=== PATIENT | male | born 1985 | race Caucasian/White ===

== ENCOUNTER 2018-03-02 10:16 | Emergency (ER) | payer OTHER, SELFPAY ==
[2018-03-02 10:18] VITALS: BP 159/112; PULSE 112; RESP 17; TEMP 36.4; O2SAT 98; BMI 30.1
--- NOTE | 2018-03-02 10:49 | EKG12_ITS ---
Test Reason : CP Blood Pressure : / mmHG Vent. Rate : 108 BPM Atrial Rate : 108 BPM P-R Int : 168 ms QRS Dur : 108 ms QT Int : 356 ms P-R-T Axes : 065 026 043 degrees QTc Int : 477 ms Sinus tachycardia Otherwise normal ECG Confirmed by HARISH ANGELO, GINGER ([id number]), editor map TRIPP MORALES ([id number]) on 03/06/2018 2:24:29 PM Referred By: AIDEE/KYLAH Confirmed By:GINGER MOREIRA MD
[2018-03-02 10:56] LABS: Absolute Lymphocyte Count 2.05 X10^3/ul (0.83-4.51); Absolute Neutrophil Count 5.7 X10^3/uL (2.0-7.7); Basophil# 0.04 X10^3/uL; Basophil% 0.5 % (0-1); Eosinophil# 0.25 X10^3/uL; Eosinophils% 2.9 % (0-5); Hematocrit 49.4 % (40-54); Hemoglobin 16.5 g/dl (13.0-16.5); Lymphocyte # 2.05 X10^3/ul (4.0); Lymphocyte % 23.6 % (19-41); Mean Corp Hgb Conc 33.4 g/gl (32-36); Mean Corpuscular Volume 80.7 fL (80-94); Mean Platelet Vol. 9.6 fl (6.2-12.0); Monocyte# 0.59 X10^3/uL; Monocyte% 6.8 % (0-10); Neutrophil # 5.73 X10^3/uL (2.7-7.7); Platelet Count 255 K/mm3 (150-450); RBC Distribution Width CV 13.3 % (11.6-14.6); RBC Distribution Width SD 39.2 fl (35.1-43.9); Red Blood Count 6.12 M/mm3 (4.6-6.2); White Blood Count 8.7 K/mm3 (4.4-11.0)
[2018-03-02 11:02] LABS: POSITIVE COUNT NO; POSITIVE DIFFERENTIAL NO; POSITIVE MORPHOLOGY NO
[2018-03-02 11:04] LABS: Anion Gap 7 (5-15); BUN 16 mg/dL (7-18); BUN/Creat Ratio 13.1 RATIO (10-20); Calcium,Total 8.9 mg/dL (8.5-10.1); Chloride 104 mmol/L (98-107); Creatinine, Serum 1.22 mg/dL (0.70-1.30); EST Glomerular Filtration Rate 72 mL/min (>60); Est Glom Filt Rate - Afr Amer 87 mL/min (>60); Estimated Creatinine Clearance 93.64 ml/min; Glucose 108 mg/dL (74-106); Potassium 3.6 mmol/L (3.5-5.1); Sodium Level 139 mmol/L (136-145)
[2018-03-02 11:10] LABS: Bedside Glucose 103 mg/dL (70-110)
[2018-03-02 12:34] VITALS: BP 144/95; PULSE 84; RESP 18; O2SAT 99
[2018-03-02 13:21] VITALS: BP 141/86; PULSE 85; RESP 17; O2SAT 98
--- NOTE | 2018-03-02 17:24 | ED.DCSUM_ITS ---
History of Present Illness Chief Complaint: Anxiety Informant: Patient Onset: Today, Hours - 3 Context: Sudden Onset - While walking Timing: Continuous Quality: Feeling shaky, chest heaviness, felt like heart rate was up but not necessa Location: Chest without radiation Current Severity: Moderate Maximum Severity: Moderate Worsened by: nothing Relieved by: nothing Narrative: Patient took 1 of his alprazolam but half of a tablet this morning before symptoms started. He states he does this typically. He also uses Claritin-D, and has used that regularly for the spring and summer, so that is unlikely the cause of his symptoms. No cocaine or other illicit substances. No significant caffeine use. Does not feel suicidal. States he has a history of panic attacks and they often feel like this except for the shakiness which he has not had before. The symptoms came out of nowhere, which is common with his panic attacks. No history of heart problems. Past Medical History - Allergies and Home Meds Allergies/Adverse Reactions: Allergies erythromycin base [Erythromycin Base] Allergy (Verified 04/17/14 09:58) Unknown simvastatin Allergy (Verified 04/17/14 09:58) Unknown Primary Care Physician: Arvin Khalil NP-C [Primary Care Provider] - Smoking Status: Never smoker Review of Systems All systems negative except as indicated Cardiovascular: Reports: Chest pain. Denies: Palpitations Respiratory: Denies: Dyspnea Neurological: Reports: - - shaky Psych: Reports: Anxiety Physical Exam Vital Signs/Narrative: Vital Signs Temp Pulse Resp BP Pulse Ox 03/02/18 12:34 84 18 144/95 H 99 03/02/18 10:18 97.5 F L 112 H 17 159/112 H 98 Inital Vital Signs reviewed: Yes General: Well nourished, Well developed Head: Normocephalic, Atraumatic Eyes: Perrl, EOMI ENT: Moist mucous membranes, No rhinorrhea Neck: Supple, Nontender Cardiovascular: Regular rate, Regular rhythm, No murmurs Respiratory: No distress, CTA bilaterally, Chest nontender Abdomen: Soft, Nontender, Nondistended, Normal bowel sounds Back: Nontender, Normal Inspection Extremities: Nontender, No edema Skin: Normal color, No rash Neurological: Alert, Oriented x3, Cranial nerves II-XII grossly intact, Normal Strength, Normal Sensation Psychological: Normal affect - mildly anxious and tremulous Diagnostic/Tx/Re-eval Laboratory Results 03/02/18 03/02/18 03/02/18 Range/Units 10:25 10:25 11:06 WBC 8.7 (4.4-11.0) K/mm3 RBC 6.12 (4.6-6.2) M/mm3 Hgb 16.5 (13.0-16.5) g/dl Hct 49.4 (40-54) % MCV 80.7 (80-94) fL MCH 27.0 (27.0-32.0) pg MCHC 33.4 (32-36) g/gl RDW 13.3 (11.6-14.6) % RDW Differential 39.2 (35.1-43.9) fl Plt Count 255 (150-450) K/mm3 MPV 9.6 (6.2-12.0) fl Immature Gran % (Auto) 0.200 (0.0-0.9) % Neut % (Auto) 66.0 (47-70) % Lymph % (Auto) 23.6 (19-41) % Miner % (Auto) 6.8 (0-10) % Eos % (Auto) 2.9 (0-5) % Baso % (Auto) 0.5 (0-1) % Absolute Neuts (auto) 5.7 (2.0-7.7) X10^3/uL Absolute Lymphs (auto) 2.05 (0.83-4.51) X10^3/ul Total Counted Not Reportable Sodium 139 (136-145) mmol/L Potassium 3.6 (3.5-5.1) mmol/L Chloride 104 (98-107) mmol/L Carbon Dioxide 28.0 (21.0-32.0) mmol/L Anion Gap 7 (5-15) BUN 16 (7-18) mg/dL Creatinine 1.22 (0.70-1.30) mg/dL Estim Creat Clear Calc 93.64 ml/min Est GFR (MDRD) Af Amer 87 (>60) mL/min Est GFR (MDRD) Non-Af 72 (>60) mL/min BUN/Creatinine Ratio 13.1 (10-20) RATIO Glucose 108 H (74-106) mg/dL Calcium 8.9 (8.5-10.1) mg/dL POC Glucose 103 (70-110) mg/dL - Rhythm Strip Rhythm Strip: Sinus Tach Rate: 105 Ectopy: None - EKG 1 Interpretation: No Acute Injury Pattern, Sinus Tachycardia - 108, - - Normal intervals - Medical Decision Making Patient took his own alprazolam, I offered to give him 1 of those here or an Ativan, but he declined and insisted on taking his own. He felt much better on reevaluation and almost testing is normal. He is not shaky anymore. I reassure him, I think is safe for discharge home. He will follow-up. ED Disposition - Plan for ED Patient: Disposition: Home or Assisted Living Chief Complaint: Anxiety Diagnosis: Anxiety attack, Chest pain, unspecified Instructions: ED Panic Attack Referrals: Arvin Khalil NP-C [Primary Care Provider] - 3-5 Days if not improving
== END 2018-03-02 13:27 | disposition home or self-care (01) ==
PROVIDERS: Emergency Provider Emergency Medicine; Family Provider Nurse Practitioner Family; PCP Nurse Practitioner Family
DX: F41.0 Panic disorder [episodic paroxysmal anxiety] (principal); R07.9 Chest pain, unspecified
CPT/HCPCS: 80048; 82962; 85025; 93005; 99283; A4216

== ENCOUNTER → 2021-04-18 | Outpatient (CLI) | payer OTHER, SELFPAY | END | disposition home or self-care (01) | LOC: LABSPEC 05-07 13:42 | PROVIDERS: PCP Nurse Practitioner Family; Visit Provider Nurse Practitioner Family | DX: Z20.822 Contact with and (suspected) exposure to COVID-19 (principal) | CPT/HCPCS: 87635; U0005; U0003 ==

== ENCOUNTER → 2023-09-21 | Outpatient (CLI) | payer OTHER, SELFPAY ==
--- OUTSIDE RECORDS SUMMARY | 2023-09-21 20:02 | XMS RPT_ITS | CCD ---
Author Name Unknown Address [address] [place] [address] Organization [facility] Care Team Providers Care [employer] Name Role Phone JACOB GOMEZ APRN, CNP Primary Care Phys ician JACOB GOMEZ APRN, CNP Attending U JACOB Villegas APRN, CNP Primary Care U isabel Allergies Allergy Classification Reported Allergen(s) Allergy Type Date of Onset Reaction(s) Facility (1 source) Cefaclor; Translations: [cefaclor] Drug Allergy Weal (disorder) [facility] [place] (1 source) Erythromycin; Translations: [erythromycin] Drug Allergy Vomiting (disorder), Nausea (finding) [facility] (1 source) Simvastatin; Translations: [simvastatin] Drug Allergy Muscle pain (finding) [facility] Medications Current Medications Medication Drug Class(es) Dates Sig (Normalized) Sig (Original) ALPRAZolam 0.5 mg oral tablet (1 source) Benzodiazepine Start: 06-17-2023 End: 09-15-2023 ALPRAZolam 0.5 mg oral tablet Dose : 0.5 mg = 1 tab(s), Oral, BID, Fill Date: 06/17/2023, # 60 tab(s), 2 Refill(s), Pharmacy: [id number], JOHN (generalized anxiety disorder) Medication management contract signed, 08/2021, 186, cm, 06/17/23 14:59:00 EDT, Height, 97.8, kg, 06/17/23 14:59:00 EDT, Dosing Weight Start Date: 06/17/23 Stop Date: 09/15/23 Status: Ordered EPINEPHrine (1 source) alpha-Adrenergic Agonist, beta-Adrenergic Agonist, Catecholamine Start: 12-24-2022 EPINEPHrine 0.3 mg injectable kit Dose : 0.3 mg = 1 EA, Intramuscular, AsDirected, PRN Allergic reaction, # 1 kit(s), 2 Refill(s), Pharmacy: [id number], Allergic reaction to bee sting, 186, cm, 12/24/22 13:01:00 EDT, Height, kg, 12/24/22 13:01:00 EDT, Dosing Weight Start Date: 12/24/22 Status: Ordered valsartan 80 mg oral tablet (1 source) Angiotensin 2 Receptor Ravin Start: 06-17-2023 End: 12-14-2023 Diovan 80 mg oral tablet Dose : 80 mg = 1 tab(s), Oral, qDay, # 30 tab(s), 5 Refill(s), Pharmacy: [facility], HTN, goal below 140/90, 186, cm, 06/17/23 14:59:00 EDT, Height, kg, 06/17/23 14:59:00 EDT, Dosing Weight Start Date: 06/17/23 Stop Date: 12/14/23 Status: Ordered Problems Problem Classification Problem Date Documented Da te Episodic/Chronic Anxiety disorders (1 source) Generalized anxiety disorder 04-23-2019 Chronic Asthma (1 source) Asthma 04-23-2019 Chronic Cardiac dysrhythmias (1 source) Palpitations 02-06-2021 Episodic Disorders of lipid metabolism (1 source) Hyperlipidemia 04-23-2019 Chronic Essential hypertension (1 source) Hypertensive disorder 12-05-2020 Chronic Heart valve disorders (1 source) Tricuspid valve regurgitation 04-23-2019 Chronic Heart valve disorders (1 source) Heart murmur 02-26-2021 Episodic Results Test Name Value Interpretation Reference Range Facil ity Encounters Encounter Date Encounter Type Care Provider Facility Start: 07-07-2023 End: 07-12-2023 ambulatory JACOB Rascon CNP Facility:B Start: 07-07-2023 End: 07-11-2023 Outreach Lab JACOB AGUIRRE APRN - ADVERTISING JOB TITLES [facility] Procedures Date Procedure Procedure Detail Performing Clinician Start: 12-28-2013 Olivia AGUIRRE APRN - ADVERTISING JOB TITLES Payers Date Payer Category Payer Unknown [id number] 1985 Unknown [id number] Social History Date Type Detail Facility Tobacco Tobacco Use: chews. Type: Or al. [facility] Evaluation + Plan note Note Date & Type Note Facility Evaluation + Plan note Future Appointments Appointment Date:09/16/2023 07:00:00 AM Scheduled Provider:JACOB AGUIRRE APRN, CNP Location:[facility] Appointment Type:PC OV Controlled Medication [facility] Hospital course Narrative Note Date & Type Note Facility Hospital course Narrative No data available for this section [facility] Hospital Discharge instructions Note Date & Type Note Facility Hospital Discharge instructions No data available for this section [facility] Progress note Note Date & Type Note Facility Progress note No data available for this section [facility] Summary Purpose Family History No Family History Records Found Advance Directives No Advanced Directives Records Found Additional Source Comments Patient Care team informatio n (unrecognized section and content) Care Team Personnel Name: JACOB AGUIRRE APRN - ADVERTISING JOB TITLES 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 This clinical summary was aggregated from multiple sources. Caution should be exercised in using it in the provision of clinical care. This summary normalizes information from multiple sources, and as a consequence, information in this document may materially change the coding, format and clinical context of patient data. In addition, data may be omitted in some cases. CLINICAL DECISIONS SHOULD BE BASED ON THE PRIMARY CLINICAL RECORDS. [facility] [employer] [facility]. provides no warranty or guarantee of the accuracy or completeness of information in this document.
== END | disposition home or self-care (01) ==
PROVIDERS: PCP Nurse Practitioner Family; Referring Provider Nurse Practitioner Family; Visit Provider Nurse Practitioner Family
DX: G47.30 Sleep apnea, unspecified (principal); G47.10 Hypersomnia, unspecified; Z76.89 Persons encountering health services in other specified circumstances
CPT/HCPCS: 95810